=== PATIENT | female | born 1985 | race Caucasian/White ===

== ENCOUNTER → 2017-10-23 | Outpatient (CLI) | payer OTHER | LOC: M ADAMS 12:11 | DX: S92.514A Nondisplaced fracture of proximal phalanx of right lesser toe(s), initial encounter for closed fracture (principal); X58.XXXA Exposure to other specified factors, initial encounter; Y92.9 Unspecified place or not applicable | CPT/HCPCS: 73660 ==

== ENCOUNTER → 2020-04-05 | Outpatient (REF) | payer OTHER ==
[2020-04-05 17:19] LABS: BASO # 0.1 10^3/uL (0.0-0.2); BASO % 0.6 % (0.0-1.0); EOS # 0.1 10^3/uL (0.0-0.5); EOS % 0.5 % (0.0-3.0); HEMATOCRIT 42.1 % (36.0-47.0); HEMOGLOBIN 13.4 g/dl (12.0-15.5); LYMPH # 2.4 10^3/uL (1.5-5.0); LYMPH % 22.8 % (24.0-44.0); MEAN CORPUSCULAR HEMOGLOBIN 29.8 pg (27.0-33.0); MEAN CORPUSCULAR HGB CONC 31.8 g/dl (32.0-36.5); MEAN CORPUSCULAR VOLUME 93.6 fl (80.0-96.0); MONO # 0.6 10^3/uL (0.0-0.8); MONO % 5.7 % (0.0-5.0); NEUTROPHILS # 7.3 10^3/uL (1.5-8.5); PLATELET COUNT, AUTOMATED 237 10^3/uL (150-450); WHITE BLOOD COUNT 10.5 10^3/uL (4.0-10.0)
[2020-04-05 17:56] LABS: ALBUMIN 4.3 GM/DL (3.2-5.2); ALT/SGPT 14 U/L (12-78); BILIRUBIN,TOTAL 1.2 MG/DL (0.2-1.0); BLOOD UREA NITROGEN 13 MG/DL (7-18); CALCIUM LEVEL 9.3 MG/DL (8.5-10.1); CARBON DIOXIDE LEVEL 26 MEQ/L (21-32); CHLORIDE LEVEL 108 MEQ/L (98-107); CREATININE FOR GFR 0.78 MG/DL (0.55-1.30); GLOMERULAR FILTRATION RATE > 60.0 (>60); GLUCOSE, FASTING 65 MG/DL (70-100); LIPASE 93 U/L (73-393); SODIUM LEVEL 139 MEQ/L (136-145); TOTAL PROTEIN 7.5 GM/DL (6.4-8.2)
== END ==
LOC: M LABDRWAD 12:09 → M LAB REF 12:09
PROVIDERS: ATTEND Physician Assistant
DX: N39.0 Urinary tract infection, site not specified (principal); R10.30 Lower abdominal pain, unspecified

== ENCOUNTER → 2020-05-31 | Outpatient (REF) | payer OTHER, MEDICAID ==
[2020-05-31 18:38] LABS: HEPATITIS C VIRUS ABY INDEX < 0.0 INDEX (<0.8); HIV 1&2 SCREEN CENTAUR NEGATIVE (NEGATIVE)
[2020-05-31 21:08] LABS: CHLAMYDIA DNA AMPLIFICATION NEGATIVE (NEGATIVE); GC DNA AMPLIFICATION NEGATIVE (NEGATIVE)
== END ==
LOC: M PLALAB 15:46
PROVIDERS: ATTEND Advanced Practice Midwife
DX: Z11.3 Encounter for screening for infections with a predominantly sexual mode of transmission (principal); Z12.4 Encounter for screening for malignant neoplasm of cervix; Z01.411 Encounter for gynecological examination (general) (routine) with abnormal findings

== ENCOUNTER → 2020-06-28 | Outpatient (REF) | payer OTHER, MEDICAID | LOC: M PLALAB 11:55 | PROVIDERS: ATTEND Obstetrics & Gynecology | DX: R87.613 High grade squamous intraepithelial lesion on cytologic smear of cervix (HGSIL) (principal) ==

== ENCOUNTER → 2020-08-27 | Outpatient (CLI) | payer OTHER, MEDICAID ==
[~2020-08-27] MED LIST: MIRE1IUD IU
== END ==
LOC: M LABSMTC 08:47
PROVIDERS: ATTEND Anesthesiology
DX: Z01.812 Encounter for preprocedural laboratory examination (principal); Z20.822 Contact with and (suspected) exposure to COVID-19

== ENCOUNTER 2020-09-01 07:00 | Day surgery (SDC) | payer OTHER ==
[~2020-09-01] VITALS: Ht 160 cm; Wt 52.2 kg
[~2020-09-01 07:00] MED LIST changes: +LIDOCAINE 1% MDV 20ML VIAL SQ PRN; +LR 1,000 ML IV ONE
[2020-09-01 07:33] LABS: HEMATOCRIT 41.3 % (36.0-47.0); HEMOGLOBIN 13.5 g/dl (12.0-15.5)
[2020-09-01] MEDS ORDERED: LIDOCAINE 2% 100MG/5ML SDV (FOR ANES.) As Ordered ONE (07:59)
[2020-09-01] MEDS ORDERED: dexameTHASONE 4 MG/ML 1ML VIAL (J1100 PER 1MG) As Ordered ONE ×2 (07:59→09:00)
[2020-09-01] MEDS ORDERED: ACETAMINOPHEN 1000MG 100ML IV BTL (OFIRMEV) (J0131 PER 10MG) As Ordered ONE (07:59)
[2020-09-01] MEDS ORDERED: fentaNYL 100 MCG/2 ML INJECTION (J3010) As Ordered ONE (07:59)
[2020-09-01] MEDS ORDERED: ONDANSETRON 4MG/2ML VIAL As Ordered ONE (07:59)
[2020-09-01] MEDS ORDERED: propofoL 200 MG/20 ML VIAL As Ordered ONE ×2 (07:59→09:00)
[2020-09-01] MEDS ORDERED: MIDAZOLAM INJ 2MG/2ML VIAL (J2250 PER 1MG) As Ordered ONE (07:59)
[2020-09-01] MEDS ORDERED: IODINE STRONG SOLN 15 ML BTL As Ordered ONE (08:00)
[2020-09-01] MEDS ORDERED: BACITRACIN OINTMENT 30GM TUBE As Ordered ONE (08:00)
[2020-09-01] MEDS ORDERED: LIDOCAINE W/EPINEPHRINE 1% 20ML VIAL As Ordered ONE (08:00)
[2020-09-01 08:05] LABS: HCG, SERUM QUALITATIVE NEGATIVE (NEGATIVE)
[2020-09-01] MEDS ORDERED: IBUP1TAB7 PO (09:36)
[2020-09-01 10:15] VITALS: BP 102/56
--- NOTE | 2020-09-01 11:18 | RO ---
OPERATIVE NOTE DATE OF OPERATION: 09/01/2020 PREOPERATIVE DIAGNOSIS: BETI 3 and right Bartholin cyst. POSTOPERATIVE DIAGNOSIS: BETI 3 and right Bartholin cyst. OPERATION PERFORMED: LEEP and right Bartholin cyst marsupialization. SURGEON: Adrienne Long M.D. JITTERBUG OPERATOR: None. ANESTHESIA: INDICATION FOR OPERATION: Julia is a 34-year-old, G3, P 2-0-1-2, using the Mirena for contraception, having a diagnosis of BETI 3 based on a colposcopy after having a normal Pap smear and she also noted having a right Bartholin's cyst that did not go away in the past. She had it incised once but it just recurred. It currently has no signs of infection but she did want resolution with a more definitive procedure so she was counseled on marsupialization of the gland and that is what she wanted. MATERIAL FORWARDED TO THE LAB FOR EXAMINATION: 1. Left superficial LEEP. 2. Right superficial LEEP. 3. Deep LEEP. DESCRIPTION OF FINDINGS: There was a nonstaining central portion and just to the left on the surface of the cervix when Lugol's was applied. When the Bartholin's cyst was incised, a moderate amount of brown peanut butter appearing secretions came from inside the cyst. INFECTION CLASSIFICATION: 2 ESTIMATED BLOOD LOSS: 10 mL IV FLUIDS: 500 mL of lactated Ringer's. URINE OUTPUT: 150 mL by in and out catheterization at the beginning of the procedure. DESCRIPTION OF OPERATION: After obtaining informed consent, the patient was taken to the operating room where she underwent MAC anesthesia. She was placed in low lithotomy position and the perineum and vagina were prepped and draped in normal sterile fashion. A coated speculum was inserted in the vagina and approximately 12 mL of 1% lidocaine with epinephrine were injected for a paracervical block in four quadrants and a coated tenaculum was applied to the cervix. The cervix had Lugol's solution applied to it and there was a portion noted slightly left of the os. Her strings were noted in place and I performed a LEEP in essentially four passes, the first the left superficial LEEP, the second right superficial LEEP and the third was a deep LEEP but that was performed in two passes only because I needed to avoid her Mirena strings. The roller ball cautery was applied to the whole LEEP bed to obtain complete hemostasis and I was able to avoid one of the strings. One of the strings came out, taken out of the vagina but one was still intact and I did tug on it slightly and noted that it did not break and it was still in place so she had one Mirena string in place still. There was total hemostasis at that point and then I applied Monsel solution over the entire LEEP bed as well. The tenaculum and speculum were removed. At that point, I turned my attention to the right labia and just inside the introitus, I made an incision right over the Bartholin gland cyst, approximately 1 to 1-1/2 cm in size after injecting some more 1% lidocaine with epinephrine for some anesthesia. Once the gland was incised, a moderate amount of brown material, thick, was expressed from the gland and I used a mosquito to break up the loculations but there was mostly the one main cyst cavity. At that point, once everything was evacuated from inside the cyst, I performed marsupialization of the gland using 3-0 Vicryl suture in several [id number] all around the cyst, tagging the inside of the cyst wall to the mucosa. There was complete hemostasis noted after the gland had suturing circumferentially and I then replaced the speculum very gently into the vagina to look at the cervix again. It was hemostatic and I applied some more Monsel solution. The speculum was removed. There was nothing retained in the vagina. The patient was awoken and transferred to the recovery room in good condition. All counts were correct x2.
== END 2020-09-01 10:22 | disposition home or self-care (01) ==
LOC: M SDC 07:00
PROVIDERS: ATTEND Obstetrics & Gynecology
DX: D06.9 Carcinoma in situ of cervix, unspecified (principal); N75.0 Cyst of Bartholin's gland; K21.9 Gastro-esophageal reflux disease without esophagitis; F17.218 Nicotine dependence, cigarettes, with other nicotine-induced disorders; G43.909 Migraine, unspecified, not intractable, without status migrainosus
CPT/HCPCS: 36415; 56440; 57522; 84703; 85014; 85018; 86850; 86900; 86901; 88307; C1727; J0131; J1100; J2250; J2405; J3010

== ENCOUNTER 2022-05-28 20:12 | Emergency (ER) | payer MEDICAID, OTHER ==
[~2022-05-28] VITALS: Ht 160 cm; Wt 54.5 kg
[~2022-05-28 20:12] MED LIST changes: +IBUP1TAB7 PO; -LIDOCAINE 1% MDV 20ML VIAL SQ PRN; -LR 1,000 ML IV ONE
[2022-05-29] MEDS ORDERED: INDOMETHACIN 25 MG CAP PO ONE (08:10)
[2022-05-29] MEDS ORDERED: ACETAMINOPHEN 500 MG TAB PO ONE (08:10)
[2022-05-29 09:10] LABS: BASO % 0.5 % (0.0-1.0); EOS # 0.1 10^3/uL (0.0-0.5); EOS % 1.5 % (0.0-3.0); HEMOGLOBIN 13.6 g/dl (12.0-15.5); LYMPH # 2.5 10^3/uL (1.5-5.0); LYMPH % 31.2 % (24.0-44.0); MEAN CORPUSCULAR HEMOGLOBIN 30.7 pg (27.0-33.0); MEAN CORPUSCULAR HGB CONC 33.2 g/dl (32.0-36.5); MEAN CORPUSCULAR VOLUME 92.6 fl (80.0-96.0); MONO # 0.6 10^3/uL (0.0-0.8); MONO % 7.5 % (2.0-8.0); NEUTROPHILS # 4.7 10^3/uL (1.5-8.5); NEUTROPHILS % 58.7 % (36.0-66.0); PLATELET COUNT, AUTOMATED 248 10^3/uL (150-450); RED BLOOD COUNT 4.43 10^6/uL (4.00-5.40)
[2022-05-29 09:42] LABS: BLOOD UREA NITROGEN 10 MG/DL (9-23); C REACTIVE PROTEIN QUANTITATIV < 0.40 MG/DL (<1.0); CALCIUM LEVEL 9.3 MG/DL (8.5-10.1); CARBON DIOXIDE LEVEL 27 MMOL/L (20-31); CHLORIDE LEVEL 107 MMOL/L (98-107); CREATININE FOR GFR 0.79 MG/DL (0.55-1.30); GLOMERULAR FILTRATION RATE > 60.0 (>60); GLUCOSE, FASTING 91 MG/DL (60-100); SODIUM LEVEL 140 MMOL/L (136-145)
[2022-05-29 09:53] LABS: ERYTHROCYTE SEDIMENTATION RATE 7 mm/hr (0-20)
[2022-05-29] MEDS ORDERED: CEPH500C PO (10:19)
[2022-05-29] MEDS ORDERED: NAPR-885 PO (10:19)
[2022-05-29 10:40] VITALS: BP 112/63
== END 2022-05-29 10:46 | disposition home or self-care (01) ==
LOC: M ED 20:12
DX: M10.9 Gout, unspecified (principal); L03.116 Cellulitis of left lower limb; M21.612 Bunion of left foot; F17.200 Nicotine dependence, unspecified, uncomplicated; F12.10 Cannabis abuse, uncomplicated; Z79.3 Long term (current) use of hormonal contraceptives

== ENCOUNTER → 2022-10-24 | Outpatient (REF) | payer MEDICAID, OTHER ==
[~2022-10-24] MED LIST changes: +CEPH500C PO; +NAPR-885 PO
[2022-10-24 15:46] LABS: GC DNA AMPLIFICATION NEGATIVE (NEGATIVE)
== END ==
LOC: M SFHCWAGY 12:42
PROVIDERS: ATTEND Advanced Practice Midwife
DX: Z12.4 Encounter for screening for malignant neoplasm of cervix (principal); Z87.410 Personal history of cervical dysplasia; R87.810 Cervical high risk human papillomavirus (HPV) DNA test positive; R87.613 High grade squamous intraepithelial lesion on cytologic smear of cervix (HGSIL)

== ENCOUNTER → 2022-11-14 | Outpatient (CLI) | payer BC, MEDICAID | LOC: M WHC 06:46 | PROVIDERS: ATTEND Advanced Practice Midwife | DX: Z30.431 Encounter for routine checking of intrauterine contraceptive device (principal) ==

== ENCOUNTER → 2022-12-05 | Outpatient (REF) | payer BC, MEDICAID | LOC: M PLALAB 13:53 | PROVIDERS: ATTEND Advanced Practice Midwife | DX: R30.0 Dysuria (principal); D06.0 Carcinoma in situ of endocervix; B97.7 Papillomavirus as the cause of diseases classified elsewhere ==

== ENCOUNTER → 2023-02-05 | Day surgery (SDC) | payer BC, OTHER ==
[~2023-02-05] VITALS: Ht 160 cm; Wt 54.0 kg
[~2023-02-05] MED LIST changes: +ACETAMINOPHEN 1000MG 100ML IV BAG As Ordered ONE; +ACETAMINOPHEN 500 MG TAB PO PRN; +CRAN400C PO; +CVS-161 PO; +HYDROMORPHONE HCL 0.5 MG/ 0.5 ML SYRINGE IV PRN; +IBUP200C25 PO; +IODINE STRONG SOLN 15ML BTL As Ordered ONE; +KETOROLAC 60MG 2ML VIAL As Ordered ONE; +LIDOCAINE 2% 100MG/5ML SDV (FOR ANES.) As Ordered ONE; +LIDOCAINE W/EPINEPHRINE 1% 20ML VIAL As Ordered ONE; +LR 1,000 ML IV SCH; +MIDAZOLAM INJ 2MG/2ML VIAL As Ordered ONE; +MORPHINE 2 MG/ML 1ML VIAL IV PRN; +ONDANSETRON 4MG 2ML VIAL As Ordered ONE; +ONDANSETRON 4MG 2ML VIAL IV PRN; +VITMTA PO; +fentaNYL 100 MCG/2 ML INJECTION As Ordered ONE; +fentaNYL 100 MCG/2 ML INJECTION IV PRN; +mirena; +oxyCODONE 5MG TAB PO PRN; +propofoL 200 MG/20 ML VIAL As Ordered ONE
[2023-02-05 08:56] LABS: HEMATOCRIT 41.8 % (36.0-47.0); HEMOGLOBIN 13.8 g/dl (12.0-15.5); MEAN CORPUSCULAR HEMOGLOBIN 30.7 pg (27.0-33.0); MEAN CORPUSCULAR VOLUME 93.1 fl (80.0-96.0); PLATELET COUNT, AUTOMATED 236 10^3/uL (150-450); RED BLOOD COUNT 4.49 10^6/uL (4.00-5.40); WHITE BLOOD COUNT 10.7 10^3/uL (4.0-10.0)
[2023-02-05 09:28] LABS: ALKALINE PHOSPHATASE 59 U/L (46-116); ALT/SGPT 19 U/L (7.0-40); AST/SGOT 15 U/L (<34); BILIRUBIN,TOTAL 1.2 MG/DL (0.3-1.2); BLOOD UREA NITROGEN 9 MG/DL (9-23); CARBON DIOXIDE LEVEL 28 MMOL/L (20-31); CHLORIDE LEVEL 110 MMOL/L (98-107); CREATININE FOR GFR 0.85 MG/DL (0.55-1.30); GLOMERULAR FILTRATION RATE > 60.0 (>60); GLUCOSE, FASTING 81 MG/DL (60-100); SODIUM LEVEL 142 MMOL/L (136-145); TOTAL PROTEIN 6.9 G/DL (5.7-8.2)
[2023-02-05 13:01] VITALS: BP 94/51; TEMP 97.8; O2SAT 100
== END | disposition home or self-care (01) ==
LOC: M SDC 08:24
PROVIDERS: ATTEND Obstetrics & Gynecology
DX: D06.0 Carcinoma in situ of endocervix (principal); F17.200 Nicotine dependence, unspecified, uncomplicated
CPT/HCPCS: 36415; 57522; 80053; 81025; 85027; 86850; 86900; 86901; 88305; 88307; J0131; J1100; J1885; J2250; J2405; J3010

== ENCOUNTER → 2023-07-24 | Outpatient (REF) | payer BC, MEDICAID ==
[~2023-07-24] MED LIST changes: -ACETAMINOPHEN 1000MG 100ML IV BAG As Ordered ONE; -ACETAMINOPHEN 500 MG TAB PO PRN; -HYDROMORPHONE HCL 0.5 MG/ 0.5 ML SYRINGE IV PRN; -IODINE STRONG SOLN 15ML BTL As Ordered ONE; -KETOROLAC 60MG 2ML VIAL As Ordered ONE; -LIDOCAINE 2% 100MG/5ML SDV (FOR ANES.) As Ordered ONE; -LIDOCAINE W/EPINEPHRINE 1% 20ML VIAL As Ordered ONE; -LR 1,000 ML IV SCH; -MIDAZOLAM INJ 2MG/2ML VIAL As Ordered ONE; -MORPHINE 2 MG/ML 1ML VIAL IV PRN; -ONDANSETRON 4MG 2ML VIAL As Ordered ONE; -ONDANSETRON 4MG 2ML VIAL IV PRN; -fentaNYL 100 MCG/2 ML INJECTION As Ordered ONE; -fentaNYL 100 MCG/2 ML INJECTION IV PRN; -oxyCODONE 5MG TAB PO PRN; -propofoL 200 MG/20 ML VIAL As Ordered ONE
== END ==
LOC: M SFHCWAGY 16:44
PROVIDERS: ATTEND Advanced Practice Midwife
DX: R30.0 Dysuria (principal)

== ENCOUNTER → 2023-08-14 | Outpatient (REF) | payer MEDICAID | LOC: M PLALAB 08:21 | PROVIDERS: ATTEND Advanced Practice Midwife | DX: Z09 Encounter for follow-up examination after completed treatment for conditions other than malignant neoplasm (principal); Z87.410 Personal history of cervical dysplasia ==

== ENCOUNTER → 2023-08-21 | Outpatient (REF) | payer MEDICAID, BC | LOC: M LAB REF 17:08 | PROVIDERS: ATTEND Surgery | DX: D48.5 Neoplasm of uncertain behavior of skin (principal) ==

== ENCOUNTER → 2023-12-18 | Outpatient (REF) | payer BC, MEDICAID ==
[~2023-12-18] MED LIST changes: -CRAN400C PO; +CRANBERRY400 MG PO
== END ==
LOC: M PLALAB 13:38
PROVIDERS: ATTEND Advanced Practice Midwife
DX: Z87.410 Personal history of cervical dysplasia (principal); R87.810 Cervical high risk human papillomavirus (HPV) DNA test positive; R87.610 Atypical squamous cells of undetermined significance on cytologic smear of cervix (ASC-US)

== ENCOUNTER → 2024-03-03 | Outpatient (REF) | payer BC, MEDICAID | LOC: M PLALAB 11:32 | PROVIDERS: ATTEND Advanced Practice Midwife | DX: Z01.419 Encounter for gynecological examination (general) (routine) without abnormal findings (principal); Z12.4 Encounter for screening for malignant neoplasm of cervix; Z11.51 Encounter for screening for human papillomavirus (HPV); Z53.9 Procedure and treatment not carried out, unspecified reason ==

== ENCOUNTER → 2024-03-03 | Outpatient (CLI) | payer BC, MEDICAID ==
[2024-03-03 13:44] LABS: FREE T4 1.15 NG/DL (0.89-1.76); TOTAL T3 99.9 NG/DL (60.0-181.0)
[2024-03-03 13:45] LABS: THYROID STIMULATING HORMONE 2.156 uIU/ML (0.55-4.78); THYROXINE (T4) 8.8 UG/DL (4.5-10.9)
[2024-03-03 15:29] LABS: Trichomonas vaginalis (AMP) NOT DETECTED (NEGATIVE)
[2024-03-03 15:54] LABS: GC DNA AMPLIFICATION NEGATIVE (NEGATIVE)
[2024-03-05 14:48] LABS: HPV APTIMA Detected (Not Detected)
== END ==
LOC: M PLALAB 11:31
PROVIDERS: ATTEND Advanced Practice Midwife
DX: Z11.3 Encounter for screening for infections with a predominantly sexual mode of transmission (principal); Z12.4 Encounter for screening for malignant neoplasm of cervix; Z11.51 Encounter for screening for human papillomavirus (HPV); R87.612 Low grade squamous intraepithelial lesion on cytologic smear of cervix (LGSIL)
CPT/HCPCS: 36415; 82308; 84436; 84439; 84443; 84480; 86376; 87624; 87661; 87810; 87850; G0123

== ENCOUNTER → 2024-05-27 | Outpatient (CLI) | payer BC, MEDICAID | LOC: M RAD 14:29 | PROVIDERS: ATTEND Advanced Practice Midwife | DX: E04.2 Nontoxic multinodular goiter (principal) ==

== ENCOUNTER → 2025-03-24 | Outpatient (REF) | payer BC, MEDICAID ==
[2025-03-26 14:23] LABS: HPV APTIMA Not Detected (Not Detected)
== END ==
LOC: M SFHCWAGY 15:36
PROVIDERS: ATTEND Advanced Practice Midwife
DX: Z12.4 Encounter for screening for malignant neoplasm of cervix (principal); Z87.410 Personal history of cervical dysplasia; R87.610 Atypical squamous cells of undetermined significance on cytologic smear of cervix (ASC-US)
CPT/HCPCS: 87624; G0123

== ENCOUNTER → 2025-03-24 | Outpatient (CLI) | payer BC | LOC: M WHC 09:38 | PROVIDERS: ATTEND Advanced Practice Midwife | DX: Z12.31 Encounter for screening mammogram for malignant neoplasm of breast (principal); R92.333 Mammographic heterogeneous density, bilateral breasts ==